=== PATIENT | male | born 1935 | race Caucasian/White ===

== ENCOUNTER → 2016-12-22 | Outpatient (CLI) | payer OTHER | LOC: MMPC 11:11 | PROVIDERS: ATTEND Internal Medicine | DX: Z23 Encounter for immunization (principal) | CPT/HCPCS: 90732; G0463 ==

== ENCOUNTER → 2017-02-25 | Outpatient (CLI) | payer OTHER | LOC: MMPC 11:11 | PROVIDERS: ATTEND Internal Medicine | DX: I10 Essential (primary) hypertension (principal); N40.0 Benign prostatic hyperplasia without lower urinary tract symptoms | CPT/HCPCS: 99213; G0463 ==

== ENCOUNTER → 2017-07-08 | Outpatient (CLI) | payer OTHER ==
[2017-07-08 10:06] LABS: BASOPHILS # (AUTO) 0.17 10*3/UL; BASOPHILS % (AUTO) 2.9 % (0-1); EOSINOPHILS # (AUTO) 0.55 10*3/UL; EOSINOPHILS % (AUTO) 9.3 % (0-8); HEMOGLOBIN 15.6 g/dL (14.0-18.0); LYMPHOCYTES # (AUTO) 1.45 10*3/uL; MEAN CORPUSCULAR HEMOGLOBIN 31.7 PG (27-31); MEAN CORPUSCULAR HGB CONC 35.5 g/dL (33-37); MEAN CORPUSCULAR VOLUME 89.4 FL (80-90); MEAN PLATELET VOLUME 8.8 FL (7.4-12.2); MONOCYTES # (AUTO) 0.69 10*3/UL (0.3-0.8); MONOCYTES % (AUTO) 11.7 % (5-15); NEUTROPHILS # (AUTO) 3.03 10*3/UL; NEUTROPHILS % (AUTO) 51.3 % (50-80); RED BLOOD COUNT 4.92 10^6/uL (4.70-6.10)
[2017-07-08 10:13] LABS: CHOL/HDL RATIO 3.78 RATIO (0-4.0); LDL CHOLESTEROL,CALCULATED 74.2 mg/dL
[2017-07-08 10:15] LABS: PLATELET MORPHOLOGY COMMENT NORMAL MORPHOLOGY (NORM); RBC MORPHOLOGY COMMENT NORMAL MORPHOLOGY (NORM); WBC MORPHOLOGY COMMENT NORMAL MORPHOLOGY (NORM)
--- NOTE | 2017-07-08 10:48 | DI ---
History: Persistent headache Comparison: March 19, 2006 Findings: Mild prominence of the ventricles and sulci, unremarkable for the patient's age There are mild small vessel ischemic changes. There is no hemorrhage. There are no space-occupying lesions. There are no extra-axial fluid collections. There is no depressed skull fracture. Visualized paranasal sinuses are clear. Mastoid cells are well-aerated. Impression: No acute intracranial pathology. Mild age-related changes
[2017-07-08 11:02] LABS: BUN/CREATININE RATIO 19.09 (6-20); CALCIUM 10.3 mg/dL (8.7-10.7)
== END ==
LOC: CT 09:49
PROVIDERS: ATTEND Nurse Practitioner
DX: G44.52 New daily persistent headache (NDPH) (principal); I10 Essential (primary) hypertension
CPT/HCPCS: 36415; 70450; 80053; 80061; 84443; 85025